=== PATIENT | male | born 1965 | race Caucasian/White ===

== ENCOUNTER 2020-06-24 01:11 | Outpatient (CLI) | payer OTHER, SELFPAY ==
[2020-06-24 19:31] LABS: SARS-CoV-2 RNA PCR Negative
== END 2020-06-24 01:12 | disposition home or self-care (01) ==
LOC: ANHCOVIDDT 01:12
PROVIDERS: Visit Provider Internal Medicine Critical Care Medicine
DX: R68.89 Other general symptoms and signs (principal); Z20.828 Contact with and (suspected) exposure to other viral communicable diseases
CPT/HCPCS: 87635; C9803; U0003

== ENCOUNTER 2020-06-27 09:39 | Outpatient (CLI) | payer OTHER, SELFPAY ==
--- NOTE | 2020-08-03 18:01 | WPDSLEEPSTUD ---
Sleep Study Date of Study: 06/27/20 Ordering Provider: ,. Interpreting Physician: Sleep Study Type: CPAP Titration Height: 1.65 m Weight: 69.853 kg Body Mass Index: 25.6 Neck Circumference: 36.83 cm [place]: 8 Reason for Sleep Study Patient had a prior stoma sleep study documenting presence of obstructive sleep apnea of a mild degree. Patient however had significant daytime symptomatology and severe comorbid conditions including ischemic heart disease, stop stroke and possibly cognitive impairment. Patient was therefore referred for a CPAP titration study as a part of treatment. Sleep History Patient reports history of loud snoring, witnessed apneas, daytime fatigue and sleepiness. Sleep Procedure Patient underwent overnight polysomnography devoted to CPAP titration. Patient used Chaney FX nasal pillows of medium size. Sleep Architecture Total recording time 412 minutes, total sleep time 324 minutes, sleep efficiency 78.8%. Sleep latency 7 minutes, REM latency 118 minutes. Awake after sleep onset 80 minutes, stage N1 6.5%, N2 81.8%, N3 0%, stage R 11.7%. Supine sleep 51.5%, supine REM sleep 0.3%. Respiratory Analysis AASM Criteria used. During CPAP titration patient had 1 central apnea with index of 0.2, patient had 1 hypopnea with index of 0.2. Apnea-hypopnea index was 0.4, patient had 3 respiratory effort related arousals with index 0.6 there for respiratory disturbance index was 1.0. Arousals Total arousals 62 with index 9.0, spontaneous arousals 48, leg movement arousals 11, snores arousals 3. Periodic Limb Movements patient had 115 leg movements with index of 21.3. There were no PLMS, there were 11 arousals due to leg movements with index of 1.6 which is not very significant. Oximetry Data Average oxygen saturation was 95%, lowest saturation recorded was 92%. therefore no significant or major desaturation occurred during titration. Snoring Profile Mild intermittent snoring noted. Cardiac Profile Normal sinus rhythm, average heart rate 66 beats per minute, range- 54-89 beats per minute. EEG Profile Unremarkable EEG. Assessment and Plan Additional Plan CPAP titration data - patient was started on a CPAP of 5 cm and was titrated to a level of 9 cm. EPR of 1 was added. At CPAP of 9.1, 1 hour 5 minutes and 43 seconds of trial performed with 75% sleep efficiency. 27 minutes and 53 seconds of REM sleep and 21 minutes and 51 seconds of non-REM sleep occurred. Apneas and hypopneas were eliminated, there were 2 RERA. apnea-hypopnea index was 0 ,respiratory disturbance index was 2.4. Patient was mostly in nonsupine position. In terms of management, if CPAP therapy is desired a level of 9 cm with EPR of 1 seems appropriate. A comfortable mask of choice will be desirable.
[2020-08-03 18:18] VITALS: BMI 25.6
== END 2020-06-27 09:40 | disposition home or self-care (01) ==
LOC: ANHCSM 08-05 09:40
PROVIDERS: Visit Provider Internal Medicine Cardiovascular Disease
DX: G47.30 Sleep apnea, unspecified (principal)
CPT/HCPCS: 95811

== ENCOUNTER 2021-04-03 16:22 | Emergency (ER) | payer SELFPAY | END 2021-04-03 16:33 | disposition left against medical advice (07) | PROVIDERS: Emergency Provider Internal Medicine Hematology & Oncology; PCP Internal Medicine | DX: Z53.21 Procedure and treatment not carried out due to patient leaving prior to being seen by health care provider (principal) | CPT/HCPCS: 99199 ==

== ENCOUNTER 2022-12-20 01:34 | Day surgery (SDC) | payer OTHER, SELFPAY ==
[2022-12-10 14:02] VITALS: BMI 26.8
--- NOTE | 2022-12-19 12:10 | P.PNAN_ITS ---
Anes - Initial Pre Proc Eval Procedure: Operation Date: 12/20/22 08:00 Proposed Procedures p Screening Colonoscopy - Bhaskar Andre MD Date/Time: 12/19/22 12:10 Surgeon: Bhaskar Andre MD Pre Op Diagnosis: neoplasm screening Patient Data Age: 57 Gender: M Height: 1.65 m Weight: 73.03 kg Allergies Allergy/AdvReac Type Severity Reaction Status Date / Time No Known Allergies Allergy Verified 12/20/22 06:51 Home Medications Medication Instructions Recorded Confirmed Type aspirin 81 mg capsule 81 mg PO DAILY 12/10/22 12/10/22 History atorvastatin 80 mg tablet 80 mg PO BID 12/10/22 12/10/22 History fenofibrate nanocrystallized 145 1 mg PO DAILY 12/10/22 12/10/22 History mg tablet lisinopril 20 1 tablet PO DAILY 12/10/22 12/10/22 History mg-hydrochlorothiazide 12.5 mg tablet omega-3 acid ethyl esters 1 gram 1 cap PO BID 12/10/22 12/10/22 History capsule Patient hx anesthesia problems: none Family hx anesthesia problems: none Results Review: All pre-operative results and documents have been reviewed as part of the pre- operative evaluation. [facility] Past Medical History Medical History (Updated 12/20/22 @ 07:01 by Brad Geller DO) CAD (coronary artery disease) Hyperlipidemia Hypertension Surgical History Surgical History (Updated 12/20/22 @ 07:01 by Brad Geller DO) History of coronary artery stent placement x1, 2019 Social History Social History Smoking status: Former smoker Tobacco type: cigarettes Drinks per week: 5 Substance use: never Substance use type: does not use Living arrangements: with family Spiritual care concerns: No Anes - Eval Final PreProcedure Day of Procedure 12/19/22 12:10 Patient weight: overweight Heart: regular rate and rhythm Lungs: clear to auscultation Airway: Mallampati scale class II Neurological: alert and oriented Last oral intake: >/= 8 hours ASA classification: III Emergent: no Anesthetic plan: proceed Anesthesia type and monitoring: general GIVS and standard monitoring Results Review: All pre-operative results and documents have been reviewed as part of the pre- operative evaluation. Informed Consent: The patient's anesthetic plan and its attendant risks and benefits were discussed with the patient/family/POA. Questions were solicited and answers provided to the satisfaction of the patient/family/POA.
--- NOTE | 2022-12-19 15:24 | PM.HPGS ---
History of Present Illness History of Present Illness Consent: Risks, benefits, and alternatives have been discussed and questions answered. Patient agrees to proceed with procedure. Chief complaint: neoplasm screening Narrative: Chip Salas is a 57 year old male Referred for colon cancer screening. His last colonoscopy was about 9 years ago. His father had colon cancer. Review of Systems Review of Systems: All systems reviewed & are unremarkable except as noted in HPI and below PMFSH Past Medical History Medical History CAD (coronary artery disease) Hyperlipidemia Hypertension Surgical History Surgical History History of coronary artery stent placement [id number] Social History Social History Smoking status: Former smoker Tobacco type: cigarettes Drinks per week: 5 Substance use: never Substance use type: does not use Living arrangements: with family Spiritual care concerns: No Meds Home Medications and Allergies Home Medications Medication Instructions Recorded Confirmed Type aspirin 81 mg capsule 81 mg PO DAILY 12/10/22 12/10/22 History atorvastatin 80 mg tablet 80 mg PO BID 12/10/22 12/10/22 History fenofibrate nanocrystallized 145 1 mg PO DAILY 12/10/22 12/10/22 History mg tablet lisinopril 20 1 tablet PO DAILY 12/10/22 12/10/22 History mg-hydrochlorothiazide 12.5 mg tablet omega-3 acid ethyl esters 1 gram 1 cap PO BID 12/10/22 12/10/22 History capsule Allergies Allergy/AdvReac Type Severity Reaction Status Date / Time No Known Allergies Allergy Verified 12/20/22 06:51 Exam Const: General: alert Orientation/consciousness: patient oriented x3 Resp: Auscultation: clear to auscultation bilaterally Cardio: Rhythm: regular rhythm GI: GI Palp: Yes Soft to palpation and No Tenderness to palpation present (GI) Neuro: General: patient oriented x3 Assessment and Plan Assessment and plan (1) Colon cancer screening: Code(s): Z12.11 - Encounter for screening for malignant neoplasm of colon Status: Acute Assessment and Plan: Colonoscopy with possible biopsy or polypectomy or cautery or injection of substances.
[2022-12-20 06:53] VITALS: BP 147/86; PULSE 68; RESP 20; TEMP 36.3; O2SAT 100; BMI 26.4
[2022-12-20] MEDS: LACTATED RINGERS 1,000 ML 150 ML IV CONT (07:00)
[2022-12-20] MEDS: SIMETHICONE ORAL SUSPENSION 20 MG/0.3 ML 30 ML BOTTLE 0.6 ML IRRIGATION (08:04)
[2022-12-20 08:10] VITALS: BP 111/72; PULSE 65; RESP 20; O2SAT 99
[2022-12-20 08:20] VITALS: BP 109/78; PULSE 63; RESP 19; O2SAT 98
[2022-12-20 08:25] VITALS: PULSE 64; RESP 14; O2SAT 98
== END 2022-12-20 08:38 | disposition home or self-care (01) ==
PROVIDERS: PCP Internal Medicine; Visit Provider Internal Medicine Gastroenterology
PROC: 0DJD8ZZ Inspection of Lower Intestinal Tract, Via Natural or Artificial Opening Endoscopic (ICD-10-PCS; CPT 45378; principal; 2022-12-20 08:00)
DX: Z12.11 Encounter for screening for malignant neoplasm of colon (principal); I25.10 Atherosclerotic heart disease of native coronary artery without angina pectoris; E78.5 Hyperlipidemia, unspecified; I10 Essential (primary) hypertension; Z87.891 Personal history of nicotine dependence
CPT/HCPCS: 45378; J2704; J7120